=== PATIENT | male | born 1965 ===

== ENCOUNTER 2016-04-03 09:50 | Outpatient (CLI) | payer BC ==
[2016-04-03 13:30] LABS: ALT (SGPT) 19 U/L (0-55); AST (SGOT) 19 U/L (5-34); Alkaline Phosphatase 67 U/L (40-150); Bilirubin, Direct 0.2 mg/dL (0.1-0.3); Bilirubin, Total 0.7 mg/dL (0.2-1.2); LDL Cholesterol, Calculated 87 mg/dL; Protein, Total 6.9 g/dL (6.0-8.3)
== END 2016-04-03 09:51 | disposition home or self-care (01) ==
LOC: NAVSJIPCSP 09:50
PROVIDERS: ATTEND Internal Medicine
DX: E78.5 Hyperlipidemia, unspecified (principal); Z79.899 Other long term (current) drug therapy
CPT/HCPCS: 36415; 80061; 80076

== ENCOUNTER 2016-12-03 12:04 | Outpatient (CLI) | payer BC ==
[2016-12-03 12:54] LABS: Anion Gap 16 mmol/L (10-20); BUN (Urea Nitrogen) 17 mg/dL (8.9-20.6); Calc. Creatinine Clearance 0 mL/min (70-130); Calcium 9.6 mg/dL (7.8-10.44); Carbon Dioxide 23 mmol/L (22-29); Chloride 107 mmol/L (98-107); Estimated GFR-MDRD 70; Glucose 97 mg/dL (70-105); Potassium 4.8 mmol/L (3.5-5.1); Sodium 141 mmol/L (136-145)
[2016-12-03 13:45] LABS: Eosinophils 3 % (0-10); Hemoglobin 15.9 g/dL (14.0-18.0); Lymphocytes 30 % (21-51); MDiff Complete? YES; Mean Corpuscular HGB CONC 32.7 g/dL (32.0-36.0); Mean Corpuscular Hemoglobin 29.9 pg (27.0-31.0); Mean Corpuscular Volume 91.2 fl (80.0-94.0); Mean Platelet Volume 6.4 fL (7.4-10.4); Monocytes 3 % (0-10); Neutrophil 64 % (42-75); PLT Morphology Comment Appears Adequate; Platelet Count 292 thou/uL (130-400); RBC Distribution Width 11.8 % (11.5-14.5); Red Blood Cell (RBC) Count 5.31 mill/uL (4.70-6.10); White Blood Cell (WBC) Count 9.9 thou/uL (4.8-10.8)
== END 2016-12-03 12:05 | disposition home or self-care (01) ==
LOC: NAVSJIPCSP 12:04
DX: K59.00 Constipation, unspecified (principal); K92.1 Melena
CPT/HCPCS: 36415; 80048; 85025